=== PATIENT | female | born 1985 | race Caucasian/White ===

== ENCOUNTER 2017-03-04 11:03 | Emergency (ER) | payer OTHER ==
[2017-03-04 12:08] LABS: Basophils % (A) 1 %; CH 31.8; CHCM 35.6; Eosinophils # (A) 0.2 k/uL (0-0.7); Eosinophils % (A) 3 %; HCT 44.6 % (34.0-46.0); HGB 16.2 gm/dL (11.4-16.0); Luc # (Auto) 0.18; Luc % (Auto) 3; Lymphocytes # (A) 1.7 k/uL (1.0-4.8); Lymphocytes % (A) 28 %; MCH 32.5 pg (25.0-35.0); MCHC 36.3 g/dL (31.0-37.0); MCV 89.6 fL (80.0-100.0); Mean Platelet Volume 7.9; Monocytes # (A) 0.4 k/uL (0-1.0); Monocytes % (A) 6 %; Neutrophils # (A) 3.7 k/uL (1.3-7.7); Neutrophils % (A) 60 %; RBC 4.98 m/uL (3.80-5.40); RDW 12.1 % (11.5-15.5); WBC 6.1 k/uL (3.8-10.6); WBC (Perox) 6.28
[2017-03-04] MEDS: SODIUM CHLORIDE 0.9% 500 ML IV SCH (12:08)
[2017-03-04 12:13] LABS: ALT 27 U/L (9-52); AST 21 U/L (14-36); Alkaline Phosphatase 53 U/L (38-126); Anion Gap 11 mmol/L; Blood Urea Nitrogen 8 mg/dL (7-17); Calcium 8.9 mg/dL (8.4-10.2); Carbon Dioxide 23 mmol/L (22-30); Chloride 104 mmol/L (98-107); Glucose 81 mg/dL (74-99); INR 1.1 (<1.2); Non-African American GFR(MDRD) >60 (>60 ml/min/1.73 sqM); Partial Thromboplastin Time 26.3 sec (22.0-30.0); Prothrombin Time 11.3 sec (9.0-12.0); Sodium 138 mmol/L (137-145); Total Bilirubin 0.5 mg/dL (0.2-1.3); Total Protein 7.2 g/dL (6.3-8.2)
[2017-03-04 12:17] LABS: Appearance,Urine Cloudy (Clear); Bilirubin,Urine Negative (Negative); Glucose,Urine (UA) Negative (Negative); Ketones,Urine Trace (Negative); Leukocyte Esterase,Urine Negative (Negative); Mucus,Urine Many /hpf; Nitrite,Urine Negative (Negative); Particle Count 8853; Protein,Urine Trace (Negative); RBC,Urine 4 /hpf (0-5); Specific Gravity,Urine 1.026 (1.001-1.035); Squamous Epithelial Cell,Urine 5 /hpf (0-4); UA Billing (MACRO vs. MICRO) MICRO; WBC,Urine 1 /hpf (0-5)
[2017-03-04] MEDS ORDERED: RX INFO: IV CONTRAST WAS GIVEN 1 EACH MISC MISCELLANE PRN (12:41)
[2017-03-04] MEDS ORDERED: KETOROLAC 30 MG/ML 1 ML VIAL IVP STA (12:41)
[2017-03-04] MEDS ORDERED: SODIUM CHLORIDE 0.9% 1,000 ML IV ONE (12:44)
--- NOTE | 2017-03-04 12:44 | ED ---
Abdominal Pain HPI - General Chief Complaint: Abdominal Pain Stated Complaint: ABDOMINAL PAIN Time Seen by Provider: 03/04/17 11:49 Source: patient, RN notes reviewed Mode of arrival: ambulatory Limitations: no limitations - History of Present Illness Initial Comments: Patient is a 31-year-old female presents to the emergency room for evaluation of abdominal pain. Patient states she began developing right lower quadrant pain about a week ago. Patient states over the past week the pain has been getting worse. Patient is having constant throbbing pain. Patient states that she felt feverish yesterday but did not take her temperature. Patient states she did not take anything for her symptoms. Patient states she followed-up with her primary care provider today and was advised to come to the emergency room for rule out appendicitis. Patient states she did have fever in the office. Patient states she did not take any Tylenol or Motrin. Patient states she is 9 out of 10 constant throbbing pain. Patient states the pain radiates to her right flank area. Patient denies any history of kidney stones or family history of kidney stones. Patient denies any pain or burning during urination, trouble urinating or blood in urine. Patient states she's been nauseous but denies any vomiting. Patient denies constipation or diarrhea. Patient denies headache or dizziness. Patient denies chest pain or shortness of breath. Patient denies any history of abdominal surgical history. - Related Data Previous Rx's Medication Instructions Recorded Acetaminophen with Codeine 1 tab PO Q4H PRN #12 tab 03/04/17 [Tylenol w/codeine #3] Ibuprofen [Motrin] 600 mg PO Q6HR PRN #20 tab 03/04/17 Allergies Allergy/AdvReac Type Severity Reaction Status Date / Time No Known Allergies Allergy Verified 03/04/17 11:52 Review of Systems ROS Statement: Those systems with pertinent positive or pertinent negative responses have been documented in the HPI. ROS Other: All systems not noted in ROS Statement are negative. Past Medical History Past Medical History: No Reported History History of Any Multi-Drug Resistant Organisms: None Reported Past Surgical History: No Surgical Hx Reported Past Psychological History: No Psychological Hx Reported Smoking Status: Current every day smoker Past Alcohol Use History: Occasional Past Drug Use History: None Reported General Exam - General Exam Comments Initial Comments: sitting in exam room, no acute distress. Limitations: no limitations General appearance: alert, in no apparent distress Head exam: Present: atraumatic, normocephalic, normal inspection Eye exam: Present: normal appearance ENT exam: Present: normal exam Neck exam: Present: normal inspection Respiratory exam: Present: normal lung sounds bilaterally. Absent: respiratory distress Cardiovascular Exam: Present: regular rate, normal rhythm, normal heart sounds GI/Abdominal exam: Present: soft, tenderness (RLQ), normal bowel sounds. Absent : distended, guarding, rebound, rigid Extremities exam: Present: normal inspection Back exam: Present: normal inspection, CVA tenderness (R). Absent: CVA tenderness (L) Neurological exam: Present: alert, oriented X3, CN II-XII intact Psychiatric exam: Present: normal affect, normal mood Skin exam: Present: warm, dry, intact, normal color. Absent: rash Course Vital Signs 03/04/17 03/04/17 03/04/17 11:11 13:06 14:06 Temperature 101.0 F H 98.7 F 98.8 F Pulse Rate 94 91 84 Respiratory 20 18 18 Rate Blood Pressure 118/65 93/59 99/67 O2 Sat by Pulse 98 99 100 Oximetry Medical Decision Making - Medical Decision Making Patient is a 31-year-old female presents emergency room for evaluation of abdominal pain. Labs are concerning findings. CT abdomen/pelvis with contrast shows no signs of appendicitis. There was free fluid noted in the cul-de-sac. It is likely that patient has a ruptured right ovarian cyst. Patient be advised to follow-up with [facility] and will be sent home with anti- inflammatories. Patient states she understands everything that was discussed with her. Return parameters discussed. Case discussed Dr. Corcoran. - Lab Data Result diagrams: 03/04/17 11:24 03/04/17 11:24 Lab Results 03/04/17 03/04/17 03/04/17 Range/Units 11:24 11:24 11:24 WBC 6.1 (3.8-10.6) k/uL RBC 4.98 (3.80-5.40) m/uL Hgb 16.2 H (11.4-16.0) gm/dL Hct 44.6 (34.0-46.0) % MCV 89.6 (80.0-100.0) fL MCH 32.5 (25.0-35.0) pg MCHC 36.3 (31.0-37.0) g/dL RDW 12.1 (11.5-15.5) % Plt Count 196 (150-450) k/uL Neutrophils % 60 % Lymphocytes % 28 % Monocytes % 6 % Eosinophils % 3 % Basophils % 1 % Neutrophils # 3.7 (1.3-7.7) k/uL Lymphocytes # 1.7 (1.0-4.8) k/uL Monocytes # 0.4 (0-1.0) k/uL Eosinophils # 0.2 (0-0.7) k/uL Basophils # 0.0 (0-0.2) k/uL PT 11.3 (9.0-12.0) sec INR 1.1 (<1.2) APTT 26.3 (22.0-30.0) sec Sodium 138 (137-145) mmol/L Potassium 4.0 (3.5-5.1) mmol/L Chloride 104 (98-107) mmol/L Carbon Dioxide 23 (22-30) mmol/L Anion Gap 11 mmol/L BUN 8 (7-17) mg/dL Creatinine 0.83 (0.52-1.04) mg/dL Est GFR (MDRD) Af Amer >60 (>60 ml/min/1.73 sqM) Est GFR (MDRD) Non-Af >60 (>60 ml/min/1.73 sqM) Glucose 81 (74-99) mg/dL Plasma Lactic Acid Jeremias (0.7-2.0) mmol/L Calcium 8.9 (8.4-10.2) mg/dL Total Bilirubin 0.5 (0.2-1.3) mg/dL AST 21 (14-36) U/L ALT 27 (9-52) U/L Alkaline Phosphatase 53 (38-126) U/L Total Protein 7.2 (6.3-8.2) g/dL Albumin 4.3 (3.5-5.0) g/dL Urine Color Urine Appearance (Clear) Urine pH (5.0-8.0) Ur Specific [place] (1.001-1.035) Urine Protein (Negative) Urine Glucose (UA) (Negative) Urine Ketones (Negative) Urine Blood (Negative) Urine Nitrite (Negative) Urine Bilirubin (Negative) Urine Urobilinogen (<2.0) mg/dL Ur Leukocyte Esterase (Negative) Urine RBC (0-5) /hpf Urine WBC (0-5) /hpf Ur Squamous Epith Cells (0-4) /hpf Urine Mucus (None) /hpf Urine HCG, Qual (Not Detectd) 03/04/17 03/04/17 03/04/17 Range/Units 11:24 11:24 12:06 WBC (3.8-10.6) k/uL RBC (3.80-5.40) m/uL Hgb (11.4-16.0) gm/dL Hct (34.0-46.0) % MCV (80.0-100.0) fL MCH (25.0-35.0) pg MCHC (31.0-37.0) g/dL RDW (11.5-15.5) % Plt Count (150-450) k/uL Neutrophils % % Lymphocytes % % Monocytes % % Eosinophils % % Basophils % % Neutrophils # (1.3-7.7) k/uL Lymphocytes # (1.0-4.8) k/uL Monocytes # (0-1.0) k/uL Eosinophils # (0-0.7) k/uL Basophils # (0-0.2) k/uL PT (9.0-12.0) sec INR (<1.2) APTT (22.0-30.0) sec Sodium (137-145) mmol/L Potassium (3.5-5.1) mmol/L Chloride (98-107) mmol/L Carbon Dioxide (22-30) mmol/L Anion Gap mmol/L BUN (7-17) mg/dL Creatinine (0.52-1.04) mg/dL Est GFR (MDRD) Af Amer (>60 ml/min/1.73 sqM) Est GFR (MDRD) Non-Af (>60 ml/min/1.73 sqM) Glucose (74-99) mg/dL Plasma Lactic Acid Jeremias 0.6 L (0.7-2.0) mmol/L Calcium (8.4-10.2) mg/dL Total Bilirubin (0.2-1.3) mg/dL AST (14-36) U/L ALT (9-52) U/L Alkaline Phosphatase (38-126) U/L Total Protein (6.3-8.2) g/dL Albumin (3.5-5.0) g/dL Urine Color Yellow Urine Appearance Cloudy H (Clear) Urine pH 6.0 (5.0-8.0) Ur Specific [place] 1.026 (1.001-1.035) Urine Protein Trace H (Negative) Urine Glucose (UA) Negative (Negative) Urine Ketones Trace H (Negative) Urine Blood Trace H (Negative) Urine Nitrite Negative (Negative) Urine Bilirubin Negative (Negative) Urine Urobilinogen 2.0 (<2.0) mg/dL Ur Leukocyte Esterase Negative (Negative) Urine RBC 4 (0-5) /hpf Urine WBC 1 (0-5) /hpf Ur Squamous Epith Cells 5 H (0-4) /hpf Urine Mucus Many H (None) /hpf Urine HCG, Qual Not Detected (Not Detectd) - Radiology Data Radiology results: report reviewed, image reviewed Disposition Clinical Impression: Ruptured ovarian cyst Disposition: HOME SELF-CARE Condition: Good Instructions: Ovarian Cyst (ED) Additional Instructions: Apply heating pads. Take medications as needed for pain. Please follow-up with [facility]. If any new symptom arises or symptoms worsen, return to ER as soon as possible. Prescriptions: Ibuprofen [Motrin] 600 mg PO Q6HR PRN #20 tab PRN Reason: Pain Acetaminophen with Codeine [Tylenol w/codeine #3] 1 tab PO Q4H PRN #12 tab PRN Reason: Pain Referrals: Elpidio Galeas MD [Primary Care Provider] - 1-2 days Time of Disposition: 13:42
[2017-03-04 13:08] VITALS: RESP 18
--- NOTE | 2017-03-04 13:14 | CT ---
EXAMINATION TYPE: CT abdomen pelvis w con DATE OF EXAM: 03/04/2017 COMPARISON: NONE HISTORY: RLQ pain, fever CT DLP: 856.6 mGycm Automated exposure control for dose reduction was used. TECHNIQUE: Helical acquisition of images was performed from the lung bases through the pelvis. CONTRAST: Performed without Oral Contrast and with IV Contrast, patient injected with 100 mL of Omnipaque 300. FINDINGS: Lung bases are clear. There is no pleural effusion. Heart size is normal. Liver spleen pancreas gallbladder appear normal. Bile ducts are not dilated. There is no adrenal mass . Kidneys show satisfactory contrast opacification. There is no hydronephrosis. There is a very small amount of free fluid in the cul-de-sac. Bladder distends smoothly. I see no int estinal wall thickening. Appendix appears normal. Bony structures are intact. IMPRESSION: MINIMAL FREE FLUID IN THE CUL-DE-SAC. NORMAL APPENDIX.
[2017-03-04] MEDS ORDERED: MORPHINE SULFATE 4 MG/ML SYRINGE IVP STA (13:41)
[2017-03-04 14:07] VITALS: BP 99/67; PULSE 84; TEMP 98.8
== END 2017-03-04 14:12 | disposition home or self-care (01) ==
LOC: EC 11:03
DX: N83.201 Unspecified ovarian cyst, right side (principal); R11.0 Nausea; F17.200 Nicotine dependence, unspecified, uncomplicated
CPT/HCPCS: 99284; 96374; 96375; 96361 ×2; 36415; 80053; 83605; 85025; 85610; 85730; 81001; 81025; 87040; 87086; 74177; J2270; J1885; Q9967

== ENCOUNTER 2017-03-05 22:17 | Emergency (ER) | payer OTHER ==
[2017-03-05 22:32] VITALS: BP 116/61; PULSE 88; RESP 18; TEMP 98.6
[2017-03-05] MEDS ORDERED: predniSONE 50 MG TAB PO STA (22:45)
[2017-03-05] MEDS ORDERED: FAMOTIDINE 20 MG TAB PO STA (22:45)
--- NOTE | 2017-03-05 22:47 | ED ---
Skin/Abscess/FB HPI - General Chief complaint: Skin/Abscess/Foreign Body Stated complaint: med reaction Time Seen by Provider: 03/05/17 22:33 Source: patient Mode of arrival: ambulatory Limitations: no limitations - History of Present Illness Initial comments: 31-year-old female patient presents today for evaluation of burning and itching to her face. She states that she was seen here the patient yesterday she did have a CAT scan and given some IV pain medications so she is unsure if he is having a reaction to them. Patient states she woke this morning felt like her face was swollen, and states that she had burning and itching to the face out the day. She denies any tongue swelling, difficulty swallowing, or difficulty breathing. States that after work tonight she did develop a single itchy she lesion to her left hand and was concerned that it might be getting worse. She denies any rash or itching anywhere else. Patient denies any recent fever, chills, shortness breath, chest pain, abdominal pain, nausea/vomiting/diarrhea, back pain, numbness, tingling, hematuria, headache, visual changes, or any other complaints. Denies any known ALLERGIES. - Related Data Previous Rx's Medication Instructions Recorded Acetaminophen with Codeine 1 tab PO Q4H PRN #12 tab 03/04/17 [Tylenol w/codeine #3] Ibuprofen [Motrin] 600 mg PO Q6HR PRN #20 tab 03/04/17 predniSONE 20 mg PO DAILY #3 tab 03/05/17 Allergies Allergy/AdvReac Type Severity Reaction Status Date / Time No Known Allergies Allergy Verified 03/04/17 11:52 Review of Systems ROS Statement: Those systems with pertinent positive or pertinent negative responses have been documented in the HPI. ROS Other: All systems not noted in ROS Statement are negative. Past Medical History Past Medical History: No Reported History History of Any Multi-Drug Resistant Organisms: None Reported Past Surgical History: No Surgical Hx Reported Past Psychological History: No Psychological Hx Reported Smoking Status: Current every day smoker Past Alcohol Use History: Occasional Past Drug Use History: None Reported General Exam Limitations: no limitations General appearance: alert, in no apparent distress Head exam: Present: atraumatic, normocephalic, normal inspection Eye exam: Present: normal appearance, PERRL, EOMI. Absent: scleral icterus, conjunctival injection, periorbital swelling ENT exam: Present: normal exam, normal oropharynx, mucous membranes moist, TM's normal bilaterally Neck exam: Present: normal inspection. Absent: tenderness, meningismus, lymphadenopathy Respiratory exam: Present: normal lung sounds bilaterally. Absent: respiratory distress, wheezes, rales, rhonchi, stridor Cardiovascular Exam: Present: regular rate, normal rhythm, normal heart sounds. Absent: systolic murmur, diastolic murmur, rubs, gallop, clicks Extremities exam: Present: normal inspection, full ROM, normal capillary refill , other (Single wheal with surrounding erythema to the left hand. ). Absent: tenderness, pedal edema, joint swelling, calf tenderness Back exam: Present: normal inspection, full ROM Neurological exam: Present: alert, oriented X3, CN II-XII intact Psychiatric exam: Present: normal affect, normal mood Skin exam: Present: warm, dry, intact, normal color. Absent: rash Course Vital Signs 03/05/17 22:28 Temperature 98.6 F Pulse Rate 88 Respiratory 18 Rate Blood Pressure 116/61 O2 Sat by Pulse 99 Oximetry Medical Decision Making - Medical Decision Making 31-year-old female patient presented to emergency for evaluation of face burning and itching. Patient was given a dose of prednisone and Pepcid here for possible ALLERGIC reaction. Patient was driving herself and agreed to take Benadryl when she arrived home. Physical examination was otherwise unremarkable. Patient instructed to complete prednisone prescription. Instructed to take Benadryl every 6 hours for symptom relief. Instructed to follow-up with her primary care physician for recheck in 1-2 days. Instructed to return immediately for any new, worsening, or concerning symptoms. Patient verbalizes understanding and agrees with this plan. Disposition Clinical Impression: Allergic reaction Disposition: HOME SELF-CARE Condition: Good Instructions: General Allergic Reaction (ED) Additional Instructions: Take [id number] Benadryl for symptom relief. Complete steroid prescription in full. Follow up with primary care physician for recheck in 1-2 days. Return immediately for any new, worsening, or concerning symptoms. Prescriptions: predniSONE 20 mg PO DAILY #3 tab Referrals: Elpidio Galeas MD [Primary Care Provider] - 1-2 days Time of Disposition: 22:47
== END 2017-03-05 22:56 | disposition home or self-care (01) ==
LOC: EC 22:17
DX: T78.40XA Allergy, unspecified, initial encounter (principal); F17.200 Nicotine dependence, unspecified, uncomplicated
CPT/HCPCS: 99283; J7512

== ENCOUNTER → 2017-10-05 | Outpatient (CLI) | payer OTHER ==
--- NOTE | 2017-10-05 21:12 | MR ---
EXAMINATION TYPE: MR manzanares wo con DATE OF EXAM: 10/05/2017 8:49 PM COMPARISON: NONE HISTORY: Low back pain, Pain in thoracic spine x1 year No prior exams Multiplanar MultiSpin echo imaging of the thoracic spine was performed. Disc herniations noted at C5-6 and C6-7. Consider dedicated cervical evaluation. Disc spaces: Moderate degenerative disc space narrowing at T7-T8 with small right paracentral disc he rniation. Minimal ventral CORD contact. No evidence for compressive myelopathy. No central stenosis. Levels are within normal limits. Spinal canal: No evidence for canal stenosis. No intrinsic or extrinsic lesion. Thoracic spinal cord: Thoracic spinal cord is of normal caliber and signal. Paraspinal soft tissues: No evidence for paraspinal mass. No destructive lesions seen. Vertebral segments: No evidence for fracture or bony lesion. IMPRESSION: 1. Degenerative disc space narrowing with disc herniation at T7-T8 as noted. 2. Cervical disc herniations. See above. EXAMINATION TYPE: MR manzanares wo con DATE OF EXAM: 10/05/2017 8:49 PM COMPARISON: 06/01/2015 HISTORY: Low back pain, Pain in thoracic spine x1 year No prior exams Multiplanar, MultiSpin echo imaging of the lumbar spine was performed. L1-L2: Normal disc appearance without desiccation. No herniation, protrusion or disc bulging. No ca nal stenosis is present. Foramina are patent bilaterally. L2-L3: Normal disc appearance without desiccation. No herniation, protrusion or disc bulging. No ca nal stenosis is present. Foramina are patent bilaterally. L3-L4: Normal disc appearance without desiccation. No herniation, protrusion or disc bulging. No ca nal stenosis is present. Foramina are patent bilaterally. L4-L5: Normal disc appearance without desiccation. No herniation, protrusion or disc bulging. No ca nal stenosis is present. Foramina are patent bilaterally. L5-S1: Moderate disc desiccation noted. Posterocentral mild disc herniation. Mild effacement ventral thecal sac. No evidence for lateral recess stenosis or central stenosis. Foramina are patent. Lumbar segments are intact. No paraspinal masses are identified. Conus medullaris has a normal appe arance. IMPRESSION: 1. Disc disease with mild herniation L5-S1 as noted.
== END | disposition home or self-care (01) ==
LOC: RADMRIMAIN 19:51
PROVIDERS: ATTEND Psychiatry & Neurology Neurology
DX: M48.04 Spinal stenosis, thoracic region (principal); M51.24 Other intervertebral disc displacement, thoracic region; M50.222 Other cervical disc displacement at C5-C6 level; M51.27 Other intervertebral disc displacement, lumbosacral region; M51.87 Other intervertebral disc disorders, lumbosacral region
CPT/HCPCS: 72146; 72148

== ENCOUNTER → 2017-12-13 | Outpatient (CLI) | payer OTHER ==
--- NOTE | 2017-12-13 21:35 | MR ---
EXAMINATION TYPE: MR cervical spine wo con DATE OF EXAM: 12/13/2017 COMPARISON: NONE HISTORY: Cervalgia right neck pain TECHNIQUE: Multiplanar, multisequence images of the cervical spine were acquired. C2-C3: No evidence for degenerative disc disease. No disc bulge/herniation or protrusion. No Canal stenosis. Foramina are patent bilaterally. C3-C4: No evidence for degenerative disc disease. No disc bulge/herniation or protrusion. No Canal stenosis. Foramina are patent bilaterally. C4-C5: No evidence for degenerative disc disease. No disc bulge/herniation or protrusion. No Canal stenosis. Foramina are patent bilaterally. C5-C6: There is right paracentral disc herniation extending into the right lateral foramen with mode rate anterior thecal sac compression. This comes in close approximation with the spinal cord. Some mi nimal cord flattening may be present. AP spinal canal stenosis posterior to the disc herniation is pr esent. This appears to extend beyond the endplate of C5-6 to lie posterior to the C5 vertebral level. Moderate right foraminal stenosis is present. C6-C7: There is a small broad-based central to right paracentral disc herniation with some extension of the right foramen at the C6-7 level. This has mild anterior thecal sac compression. Moderate right foraminal narrowing is present. No spinal canal stenosis is present. C7-T1: No evidence for degenerative disc disease. No disc bulge/herniation or protrusion. No Canal stenosis. Foramina are patent bilaterally. Cervical segments are intact. There is normal alignment. Cervical spinal cord is of normal signal. Craniovertebral junction relationships are within normal limits. IMPRESSION: 1. Large broad based disc herniation C5-6 with moderate anterior thecal sac compression cord contact and suggestion of mild cord flattening. This extends into the right foramen. 2. Smaller C 67 right paracentral right lateral disc herniation with mild anterior thecal sac tate vishal without stenosis or cord contact.
== END | disposition home or self-care (01) ==
LOC: RADMRIMAIN 19:34
PROVIDERS: ATTEND Nurse Practitioner Acute Care
DX: M50.222 Other cervical disc displacement at C5-C6 level (principal); G95.29 Other cord compression
CPT/HCPCS: 72141

== ENCOUNTER → 2018-04-26 | Outpatient (CLI) | payer OTHER ==
--- NOTE | 2018-04-26 23:17 | MR ---
EXAMINATION TYPE: MR lumbar spine wo con DATE OF EXAM: 04/26/2018 COMPARISON: Most recent MRI lumbar spine October 05, 2017. HISTORY: Lumbago per order. Back pain for 3 years causing pain into both lower extremities per patien t. TECHNIQUE: Multiplanar, multisequence imaging of the lumbar spine is performed without IV contrast. FINDINGS: Sagittal images of the lumbar spine redemonstrate vertebral body heights and alignment to a ppear satisfactory. There is persistent disc desiccation L5-S1 level otherwise the intervertebral dis cs demonstrate normal heights and hydration. Small posterior disc herniation L5-S1 level is redemonst rated on sagittal images. The conus medullaris position is stable at mid L2 level slightly low lying without abnormal signal or clumping of lumbosacral nerve roots. The bone marrow signal intensity is within normal limits. No significant spurring is present. Axial images show no T12-L1, L1-L2, L2-L3, L3-L4, and L4-L5 levels all to remain within normal limits . Axial images at the L5-S1 level redemonstrated mild facet degenerative changes bilaterally. There is central disc protrusion minimally effacing anterior thecal sac and axial image 5. Bilateral neural fo ramina are patent. No significant change from prior. No suspicious incidental retroperitoneal findings are identified. IMPRESSION: Stable low lying conus and degenerative change L5-S1 level.
== END | disposition home or self-care (01) ==
LOC: RADMRIMAIN 18:37
PROVIDERS: ATTEND Nurse Practitioner Acute Care
DX: M47.816 Spondylosis without myelopathy or radiculopathy, lumbar region (principal)
CPT/HCPCS: 72148